=== PATIENT | female | born 1955 | race Caucasian/White ===

== ENCOUNTER 2023-07-15 09:03 | Day surgery (SDC) | payer OTHER ==
[2023-07-13 10:41] VITALS: BMI 30.7
[2023-07-15 09:47] VITALS: TEMP 97.2
[2023-07-15 12:22] VITALS: BP 130/63; PULSE 83; RESP 19
== END 2023-07-15 12:22 | disposition home or self-care (01) ==
LOC: FASU-ENDO 09:03
PROVIDERS: ATTEND Internal Medicine Gastroenterology
PROC: 0DB78ZX Excision of Stomach, Pylorus, Via Natural or Artificial Opening Endoscopic, Diagnostic (ICD-10-PCS; 2023-07-15)
PROC: 0DB48ZX Excision of Esophagogastric Junction, Via Natural or Artificial Opening Endoscopic, Diagnostic (ICD-10-PCS; 2023-07-15)
PROC: 0DB98ZX Excision of Duodenum, Via Natural or Artificial Opening Endoscopic, Diagnostic (ICD-10-PCS; principal; 2023-07-15 11:32)
DX: K22.70 Barrett's esophagus without dysplasia (principal); K44.9 Diaphragmatic hernia without obstruction or gangrene; K31.89 Other diseases of stomach and duodenum

== ENCOUNTER 2023-09-02 10:51 | Day surgery (SDC) | payer OTHER ==
[2023-09-01 11:49] VITALS: BMI 30.7
[2023-09-02 13:13] VITALS: TEMP 97.9
[2023-09-02 13:16] VITALS: BP 103/51; PULSE 77; RESP 20
== END 2023-09-02 12:53 | disposition home or self-care (01) ==
LOC: FASU-ENDO 10:51
PROVIDERS: ATTEND Internal Medicine Gastroenterology
PROC: 0DB68ZX Excision of Stomach, Via Natural or Artificial Opening Endoscopic, Diagnostic (ICD-10-PCS; 2023-09-02)
PROC: 0DB18ZX Excision of Upper Esophagus, Via Natural or Artificial Opening Endoscopic, Diagnostic (ICD-10-PCS; 2023-09-02)
PROC: 0DB28ZX Excision of Middle Esophagus, Via Natural or Artificial Opening Endoscopic, Diagnostic (ICD-10-PCS; 2023-09-02)
PROC: 0DB38ZX Excision of Lower Esophagus, Via Natural or Artificial Opening Endoscopic, Diagnostic (ICD-10-PCS; principal; 2023-09-02 12:11)
DX: Z13.810 Encounter for screening for upper gastrointestinal disorder (principal); K22.70 Barrett's esophagus without dysplasia; K21.00 Gastro-esophageal reflux disease with esophagitis, without bleeding; K31.9 Disease of stomach and duodenum, unspecified; Z87.19 Personal history of other diseases of the digestive system

== ENCOUNTER 2024-03-02 10:17 | Day surgery (SDC) | payer OTHER ==
[2024-03-01 11:00] VITALS: BMI 30.9
[2024-03-02 12:20] VITALS: BP 112/53; PULSE 89; RESP 18; TEMP 97.3
== END 2024-03-02 12:44 | disposition home or self-care (01) ==
LOC: FASU-ENDO 10:17
PROVIDERS: ATTEND Internal Medicine Gastroenterology
PROC: 0DJD8ZZ Inspection of Lower Intestinal Tract, Via Natural or Artificial Opening Endoscopic (ICD-10-PCS; principal; 2024-03-02 11:28)
DX: Z12.11 Encounter for screening for malignant neoplasm of colon (principal); K57.30 Diverticulosis of large intestine without perforation or abscess without bleeding; K64.1 Second degree hemorrhoids